=== PATIENT | male | born 1950 | race Caucasian/White ===

== ENCOUNTER → 2025-02-05 08:07 | Outpatient (REF) | payer MEDICARE, SELFPAY | LOC: RCS 08:07 | PROVIDERS: ATTENDING PHYSICIAN Family Medicine | DX: E11.65 Type 2 diabetes mellitus with hyperglycemia (principal); E78.2 Mixed hyperlipidemia; R06.02 Shortness of breath | CPT/HCPCS: 93017; 93306 ==